=== PATIENT | male | born 1960 | race Caucasian/White ===

== ENCOUNTER 2016-09-02 09:45 | Inpatient (IN) | payer OTHER ==
[2016-08-30 16:30] LABS: ASPARTATE AMINO TRANSFERASE 13 U/L (15-37); BLOOD UREA NITROGEN 12 mg/dL (7-18)
[~2016-09-02] VITALS: Ht 175.3 cm; Wt 86.8 kg
[~2016-09-02 09:45] MED LIST: BACITRACIN 50,000 UNIT ONE; BUPIVACAINE/PF-EPI 0.5% 1:200K ONE; CHOL10003 PO; GABA300C10 PO; IBUP-1 PO; ROSU10TA PO; THROMBIN 5,000 UNIT VIAL TP ONE; THYR60TA PO
[2016-09-02 10:54] VITALS: BP 141/95
[2016-09-02] MEDS ORDERED: LIDOCAINE 1%, 2ML ONE (11:18)
[2016-09-02] MEDS ORDERED: ONDANSETRON 2MG/ML, 2ML ONE ×2 (12:11)
[2016-09-02] MEDS ORDERED: DEXAMETHASONE 4 MG/ML, 1ML ONE ×2 (12:11)
[2016-09-02] MEDS ORDERED: PROPOFOL 10 MG/ML, 20ML ONE ×3 (12:11)
[2016-09-02] MEDS ORDERED: PHENYLEPHRINE 10 MG/ML ONE ×2 (12:11)
[2016-09-02] MEDS ORDERED: SUCCINYLCHOLINE 20 MG/ML, 10ML ONE (12:11)
[2016-09-02] MEDS ORDERED: PROPOFOL 10 MG/ML, 50ML ONE (12:11)
[2016-09-02] MEDS ORDERED: CEFAZOLIN 1,000 MG ONE ×2 (12:11)
[2016-09-02] MEDS ORDERED: NORTRIPTYLINE 25 MG CAPSULE ONE (12:11)
[2016-09-02] MEDS ORDERED: EPHEDRINE 50 MG/ML, 1ML ONE ×2 (12:11)
[2016-09-02] MEDS ORDERED: REMIFENTANIL 1 MG ONE (12:20)
[2016-09-02] MEDS ORDERED: REMIFENTANIL 2 MG ONE (12:20)
[2016-09-02] MEDS ORDERED: FENTANYL PF 250 MCG/5ML ONE ×2 (12:41→17:38)
[2016-09-02] MEDS ORDERED: MIDAZOLAM 1 MG/ML, 2ML ONE ×2 (12:41→17:38)
[2016-09-02] MEDS ORDERED: hydrALAzine 20 MG/ML, 1ML IV PRN (13:30)
[2016-09-02] MEDS ORDERED: HYDROcodone/APAP 7.5-325MG/15ML UDC PO PRN (13:30)
[2016-09-02] MEDS ORDERED: EPHEDRINE 50 MG/ML, 1ML IVPush PRN (13:30)
[2016-09-02] MEDS ORDERED: ONDANSETRON 2MG/ML, 2ML IVPush PRN (13:30)
[2016-09-02] MEDS ORDERED: ACETAMINOPHEN 325 MG TABLET PO PRN (13:30)
[2016-09-02] MEDS ORDERED: PROMETHAZINE 25 MG/ML, 1ML IV PRN (13:30)
[2016-09-02] MEDS ORDERED: MIDAZOLAM 1 MG/ML, 2ML IV PRN (13:30)
[2016-09-02] MEDS ORDERED: MEPERIDINE/PF 25MG/0.5ML IVPush PRN (13:30)
[2016-09-02] MEDS ORDERED: OXYcodone 5 MG/5 ML ORAL.SOL UDC PO PRN (13:30)
[2016-09-02] MEDS ORDERED: ACETAMINOPHEN 650 MG/20.3 ML UDC ONE (15:07)
[2016-09-02] MEDS ORDERED: HYDROmorphone 1 MG/ML, 1ML ONE (15:07)
[2016-09-02] MEDS ORDERED: FENTANYL PF 100 MCG/2ML ONE (15:07)
[2016-09-02] MEDS ORDERED: OXYcodone 5 MG/5 ML ORAL.SOL UDC ONE (15:08)
[2016-09-02] MEDS: FENTANYL PF 100 MCG/2ML IV PRN ×2 (15:19→15:35)
[2016-09-02] MEDS: HYDROmorphone 1 MG/ML, 1ML IV PRN ×2 (15:19→15:36)
[2016-09-02] MEDS: LABETALOL 5MG/ML, 20ML IV PRN ×3 (15:26→16:24)
[2016-09-02] MEDS ORDERED: CYCLOBENZAPRINE 10 MG TABLET ONE (15:43)
[2016-09-02] MEDS ORDERED: hydrALAzine 20 MG/ML, 1ML ONE (15:48)
[2016-09-02] MEDS ORDERED: CYCLOBENZAPRINE 10 MG TABLET PO PRN (16:00)
[2016-09-02] MEDS ORDERED: THROMBIN 5,000 UNIT VIAL TP ONE (18:13)
[2016-09-02] MEDS ORDERED: PROPOFOL 100 ML IV ONE (19:10)
[2016-09-02] MEDS ORDERED: PROPOFOL 100 ML IV PRN (19:30)
[2016-09-02] MEDS: FENTANYL PF 100 MCG/2ML IVPush PRN (20:23)
[2016-09-02] MEDS ORDERED: SENNOSIDES 8.8 MG/5 ML ORAL SOL NG PRN (20:30)
[2016-09-02] MEDS ORDERED: SENNA/DOCUSATE TABLET NG PRN (20:30)
[2016-09-02] MEDS ORDERED: PHARMACY MAY ADJ FOR RENAL FX MC SCH (20:30)
[2016-09-02] MEDS ORDERED: LIDOCAINE-MPF 1%, 2ML ENDO PRN (20:30)
[2016-09-02] MEDS ORDERED: BISACODYL 10 MG SUPP PR PRN (20:30)
[2016-09-02] MEDS: ALBUTEROL/IPRATROPIUM 2.5MG/0.5MG, 3 ML INLINE SCH (20:30)
[2016-09-02] MEDS ORDERED: FENTANYL PF 100 MCG/2ML IVPush PRN (20:30)
[2016-09-02] MEDS ORDERED: LACTULOSE 20 GM/30 ML UDC NG PRN (20:30)
[2016-09-02] MEDS: FAMOTIDINE 20 MG/2 ML IV SCH (22:14)
[2016-09-02 23:27] VITALS: BP 103/67
[2016-09-03] MEDS: ALBUTEROL/IPRATROPIUM 2.5MG/0.5MG, 3 ML INLINE SCH ×7 (00:30→22:10)
[2016-09-03] MEDS: PROPOFOL 100 ML IV PRN ×6 (00:47→20:41)
[2016-09-03] MEDS: VANCOMYCIN 1,300 MG in SODIUM CHLORIDE 0.9% 250 ML IV SCH ×2 (00:47→13:02)
[2016-09-03] MEDS: FENTANYL PF 100 MCG/2ML IVPush PRN ×6 (00:49→20:36)
[2016-09-03] MEDS ORDERED: PHARMACOKINETIC MONITORING MC PRN (01:00)
[2016-09-03] MEDS: DEXAMETHASONE 4 MG/ML, 1ML IVPush SCH ×4 (01:26→19:33)
[2016-09-03] MEDS ORDERED: BISACODYL 10 MG SUPP PR PRN (01:30)
[2016-09-03] MEDS ORDERED: LABETALOL 5MG/ML, 20ML IV PRN (01:30)
[2016-09-03] MEDS ORDERED: NS + 20MEQ KCL 1,000 ML IV SCH (01:30)
[2016-09-03] MEDS ORDERED: DIPHENHYDRAMINE 50 MG/ML, 1ML IVPush PRN (01:30)
[2016-09-03] MEDS ORDERED: MAGNESIUM HYDROXIDE 8%, 30ML UDC PO PRN (01:30)
[2016-09-03] MEDS ORDERED: DIPHENHYDRAMINE 25 MG CAPSULE PO PRN (01:30)
[2016-09-03] MEDS ORDERED: ONDANSETRON 2MG/ML, 2ML IV PRN (01:30)
[2016-09-03] MEDS: CEFAZOLIN PMX 1GM/50ML 50 ML IVPB SCH ×3 (03:02→16:41)
[2016-09-03 04:00] VITALS: BP 93/57
[2016-09-03 04:29] LABS: ABG COLLECTION SITE RIGHT RADIAL; COLLATERAL CIRCULATION TESTING NORMAL
[2016-09-03 04:44] LABS: BLOOD UREA NITROGEN 14 mg/dL (7-18)
[2016-09-03] MEDS: FAMOTIDINE 20 MG/2 ML IV SCH ×2 (07:43→19:33)
[2016-09-03] MEDS: THYROID MC SCH ×2 (08:00→16:00)
[2016-09-03] MEDS: ROSUVASTATIN MC SCH ×2 (08:00→16:00)
[2016-09-03] MEDS: DOXYCYCLINE MC SCH ×2 (08:00→16:00)
[2016-09-03] MEDS ORDERED: GABAPENTIN 300 MG CAPSULE PO SCH (09:00)
[2016-09-03] MEDS: GABAPENTIN 300 MG CAPSULE PO SCH ×3 (09:38→20:38)
[2016-09-03] MEDS: SENNA/DOCUSATE TABLET PO SCH (09:39)
[2016-09-03] MEDS: MIDAZOLAM 1 MG/ML, 5ML IVPush PRN ×4 (12:19→20:36)
[2016-09-03] MEDS ORDERED: VECURONIUM 10 MG IVPush ONE (12:30)
[2016-09-03] MEDS: NS + 20MEQ KCL 1,000 ML IV SCH (19:33)
[2016-09-03] MEDS: HYDROcodone/APAP 10/325 MG TABLET PO PRN (19:34)
[2016-09-03] MEDS: ATORVASTATIN 80 MG TABLET PO SCH (20:38)
[2016-09-03] MEDS: SODIUM CHLORIDE FLUSH 10ML SYR IVF SCH (20:38)
[2016-09-04] MEDS: VANCOMYCIN 1,300 MG in SODIUM CHLORIDE 0.9% 250 ML IV SCH ×2 (00:45→14:07)
[2016-09-04] MEDS: PROPOFOL 100 ML IV PRN ×3 (00:45→07:22)
[2016-09-04] MEDS: DEXAMETHASONE 4 MG/ML, 1ML IVPush SCH ×4 (02:17→19:49)
[2016-09-04] MEDS: HYDROcodone/APAP 5/325 TABLET PO PRN (02:21)
[2016-09-04] MEDS: morphine SULFATE 10 MG/ML, 1ML IV PRN (02:24)
[2016-09-04] MEDS: MIDAZOLAM 1 MG/ML, 5ML IVPush PRN (02:24)
[2016-09-04] MEDS: CEFAZOLIN PMX 1GM/50ML 50 ML IVPB SCH ×3 (02:34→16:10)
[2016-09-04] MEDS: ALBUTEROL/IPRATROPIUM 2.5MG/0.5MG, 3 ML INLINE SCH ×2 (02:45→07:55)
[2016-09-04 04:44] LABS: ABG COLLECTION SITE RIGHT RADIAL; COLLATERAL CIRCULATION TESTING NORMAL
[2016-09-04] MEDS: FENTANYL PF 100 MCG/2ML IVPush PRN (04:52)
[2016-09-04 06:03] LABS: BLOOD UREA NITROGEN 14 mg/dL (7-18)
[2016-09-04] MEDS: HYDROcodone/APAP 10/325 MG TABLET PO PRN (07:20)
[2016-09-04] MEDS: GABAPENTIN 300 MG CAPSULE PO SCH ×3 (07:36→21:27)
[2016-09-04] MEDS: SENNA/DOCUSATE TABLET PO SCH (07:37)
[2016-09-04] MEDS: SODIUM CHLORIDE FLUSH 10ML SYR IVF SCH ×2 (07:37→21:27)
[2016-09-04] MEDS: FAMOTIDINE 20 MG/2 ML IV SCH ×2 (07:37→20:36)
[2016-09-04] MEDS: NS + 20MEQ KCL 1,000 ML IV SCH ×3 (07:59→21:28)
[2016-09-04] MEDS ORDERED: VANCOMYCIN 1,300 MG in SODIUM CHLORIDE 0.9% 250 ML IV SCH (08:39)
[2016-09-04] MEDS: LEVOTHYROXINE 75 MCG TABLET PO/NG SCH (09:44)
[2016-09-04 17:00] VITALS: BP 153/93
[2016-09-04] MEDS: ACETAMINOPHEN 650 MG/20.3 ML UDC NG PRN (20:35)
[2016-09-04] MEDS: DOXYCYCLINE 100MG TABLET PO SCH (21:27)
[2016-09-04] MEDS: ATORVASTATIN 80 MG TABLET PO SCH (21:27)
[2016-09-04 21:52] VITALS: BP 135/80
[2016-09-05] MEDS: CEFAZOLIN PMX 1GM/50ML 50 ML IVPB SCH (00:34)
[2016-09-05] MEDS: CYCLOBENZAPRINE 10 MG TABLET PO PRN ×2 (00:49→22:49)
[2016-09-05] MEDS: VANCOMYCIN 1,300 MG in SODIUM CHLORIDE 0.9% 250 ML IV SCH (01:49)
[2016-09-05] MEDS: DEXAMETHASONE 4 MG/ML, 1ML IVPush SCH ×4 (01:50→19:53)
[2016-09-05 04:00] VITALS: BP 140/88
[2016-09-05 04:21] LABS: ABG COLLECTION SITE RIGHT RADIAL; COLLATERAL CIRCULATION TESTING NORMAL
[2016-09-05 04:31] LABS: BLOOD UREA NITROGEN 16 mg/dL (7-18)
[2016-09-05] MEDS: ACETAMINOPHEN 650 MG/20.3 ML UDC NG PRN (05:45)
[2016-09-05] MEDS: LEVOTHYROXINE 75 MCG TABLET PO/NG SCH (05:53)
[2016-09-05] MEDS: HYDROcodone/APAP 5/325 TABLET PO PRN ×2 (09:44→22:49)
[2016-09-05] MEDS: SODIUM CHLORIDE FLUSH 10ML SYR IVF SCH ×2 (09:44→21:00)
[2016-09-05] MEDS: PIPERACILLIN/TAZO 3.375 GM in SODIUM CHLORIDE 0.9% 50 ML IV SCH ×3 (09:44→23:44)
[2016-09-05] MEDS: SENNA/DOCUSATE TABLET PO SCH (09:51)
[2016-09-05] MEDS: GABAPENTIN 300 MG CAPSULE PO SCH ×3 (09:51→23:42)
[2016-09-05] MEDS: FAMOTIDINE 20 MG/2 ML IV SCH ×2 (09:51→22:50)
[2016-09-05] MEDS: DOXYCYCLINE 100MG TABLET PO SCH ×2 (09:52→22:49)
[2016-09-05] MEDS: NS + 20MEQ KCL 1,000 ML IV SCH ×2 (09:58→22:48)
[2016-09-05] MEDS ORDERED: VANCOMYCIN 1,400 MG in SODIUM CHLORIDE 0.9% 250 ML IV SCH (14:00)
[2016-09-05 19:09] VITALS: BP 157/77
[2016-09-05] MEDS: ATORVASTATIN 80 MG TABLET PO SCH ×2 (22:49→22:55)
[2016-09-06 00:02] VITALS: BP 142/80
[2016-09-06 00:04] VITALS: BP 142/80
[2016-09-06] MEDS: DEXAMETHASONE 4 MG/ML, 1ML IVPush SCH ×4 (01:17→22:27)
[2016-09-06 03:59] VITALS: BP 154/87
[2016-09-06] MEDS: NS + 20MEQ KCL 1,000 ML IV SCH ×2 (05:30→15:31)
[2016-09-06 05:31] LABS: BLOOD UREA NITROGEN 22 mg/dL (7-18)
[2016-09-06] MEDS: LEVOTHYROXINE 75 MCG TABLET PO/NG SCH (05:36)
[2016-09-06] MEDS: PIPERACILLIN/TAZO 3.375 GM in SODIUM CHLORIDE 0.9% 50 ML IV SCH ×4 (05:36→22:38)
[2016-09-06] MEDS: morphine SULFATE 10 MG/ML, 1ML IV PRN (06:46)
[2016-09-06] MEDS: FAMOTIDINE 20 MG/2 ML IV SCH (07:45)
[2016-09-06] MEDS: SODIUM CHLORIDE FLUSH 10ML SYR IVF SCH ×2 (07:45→22:25)
[2016-09-06 09:30] VITALS: BP 158/90
[2016-09-06] MEDS: DOXYCYCLINE 100MG TABLET PO SCH ×2 (09:57→22:27)
[2016-09-06] MEDS: SENNA/DOCUSATE TABLET PO SCH (09:57)
[2016-09-06] MEDS: GABAPENTIN 300 MG CAPSULE PO SCH ×3 (09:57→22:26)
[2016-09-06 12:58] VITALS: BP 158/95
[2016-09-06 19:53] VITALS: BP 155/88
[2016-09-06] MEDS: FAMOTIDINE 20 MG TABLET PO SCH (22:26)
[2016-09-06] MEDS: ATORVASTATIN 80 MG TABLET PO SCH ×2 (22:27→22:31)
[2016-09-07] MEDS: NS + 20MEQ KCL 1,000 ML IV SCH (00:21)
[2016-09-07 03:13] VITALS: BP 159/94
[2016-09-07 05:33] LABS: BLOOD UREA NITROGEN 25 mg/dL (7-18)
[2016-09-07] MEDS: PIPERACILLIN/TAZO 3.375 GM in SODIUM CHLORIDE 0.9% 50 ML IV SCH (05:38)
[2016-09-07 06:50] VITALS: BP 160/95
[2016-09-07] MEDS: LEVOTHYROXINE 75 MCG TABLET PO/NG SCH (07:50)
[2016-09-07] MEDS: FAMOTIDINE 20 MG TABLET PO SCH (09:22)
[2016-09-07] MEDS: SODIUM CHLORIDE FLUSH 10ML SYR IVF SCH (09:22)
[2016-09-07] MEDS: SENNA/DOCUSATE TABLET PO SCH (09:22)
[2016-09-07] MEDS: DEXAMETHASONE 4 MG/ML, 1ML IVPush SCH (09:22)
[2016-09-07] MEDS: GABAPENTIN 300 MG CAPSULE PO SCH (09:22)
[2016-09-07] MEDS: DOXYCYCLINE 100MG TABLET PO SCH (09:22)
[2016-09-07 12:00] VITALS: BP 155/88
[2016-09-07] MEDS ORDERED: AMOX1TAB64 PO (12:50)
[2016-09-07] MEDS ORDERED: METH4TAB2 PO (12:52)
[2016-09-07] MEDS ORDERED: HYDR-3307 PO (12:54)
[2016-09-07] MEDS ORDERED: CYCL-259 PO (12:56)
[2016-09-07] MEDS ORDERED: FAMO-79 PO (12:58)
== END 2016-09-07 13:30 | disposition home or self-care (01) | DRG 471 ==
LOC: ORIP 10:10 → CCU 18:29 → 4NOR 09-05 16:33 → UNDODISIN 09-07 12:31 → DCLOUNGE 09-07 12:32
PROVIDERS: ADMIT Neurological Surgery; ATTEND Neurological Surgery
PROC: 0BH17EZ Insertion of Endotracheal Airway into Trachea, Via Natural or Artificial Opening (ICD-10-PCS; 2016-09-02)
PROC: 0RG20A0 Fusion of 2 or more Cervical Vertebral Joints with Interbody Fusion Device, Anterior Approach, Anterior Column, Open Approach (ICD-10-PCS; 2016-09-02)
PROC: 0RB30ZZ Excision of Cervical Vertebral Disc, Open Approach (ICD-10-PCS; 2016-09-02)
PROC: 055Y0ZZ Destruction of Upper Vein, Open Approach (ICD-10-PCS; 2016-09-02)
PROC: 4A11X4G Monitoring of Peripheral Nervous Electrical Activity, Intraoperative, External Approach (ICD-10-PCS; 2016-09-02)
PROC: 01N10ZZ Release Cervical Nerve, Open Approach (ICD-10-PCS; 2016-09-02)
PROC: 0JC40ZZ Extirpation of Matter from Right Neck Subcutaneous Tissue and Fascia, Open Approach (ICD-10-PCS; 2016-09-02)
PROC: 5A1945Z Respiratory Ventilation, 24-96 Consecutive Hours (ICD-10-PCS; principal; 2016-09-02 13:30)
DX: M48.02 Spinal stenosis, cervical region (principal); J96.00 Acute respiratory failure, unspecified whether with hypoxia or hypercapnia; J18.9 Pneumonia, unspecified organism; G95.89 Other specified diseases of spinal cord; G89.29 Other chronic pain; E78.5 Hyperlipidemia, unspecified; E03.9 Hypothyroidism, unspecified; S10.93XA Contusion of unspecified part of neck, initial encounter; R13.10 Dysphagia, unspecified; F17.210 Nicotine dependence, cigarettes, uncomplicated; M54.12 Radiculopathy, cervical region
CPT/HCPCS: 36415; 36600; 71010; 71020; 72040; 74230; 80048; 80053; 80202; 81001; 82803; 82805; 83735; 84478; 85025; 85610; 85730; 86850; 86900; 87070; 87081; 87086; 87205; 93005; 94002; 94003; 94150; 94640; C1713; J0690; J1100; J1170; J2250; J2405; J2543; J2704; J3010; J3370; J3480; J7620; C1762; C1778; J0330; J2270; J2370; J7050; S0028